=== PATIENT | female | born 1940 | race Two or more races ===

== ENCOUNTER 2017-02-16 11:17 | Inpatient (IN) | payer MEDICAID, MEDICARE ==
[~2017-02-16] VITALS: Ht 170.2 cm; Wt 85.0 kg
[2017-02-16 12:53] LABS: microscopic required? YES; urine erythrocyte 3+ (NEGATIVE)
[2017-02-16 12:54] LABS: BASOPHIL % 0.3 % (0-2); RED CELL DISTRIBUTION WIDTH 13.9 % (11.5-14.5)
[2017-02-16 13:02] LABS: PLATELET COUNT 49 x10^3mcL (130-400)
[2017-02-16 13:06] LABS: CHLORIDE SERUM 99 mmol/L (98-107); POTASSIUM SERUM 4.1 mmol/L (3.5-5.1); SODIUM SERUM 135 mmol/L (136-145)
[2017-02-16 13:08] LABS: CALCIUM 8.8 mg/dL (8.5-10.1); CREATININE SERUM 1.3 mg/dL (0.6-1.0); GLUCOSE SERUM 437 mg/dL (74-106); PHOSPHOROUS 4.1 mg/dL (2.5-4.9); TOTAL PROTEIN, SERUM 7.6 g/dL (6.4-8.2)
[2017-02-16 13:09] LABS: ALKALINE PHOSPHATASE 62 U/L (46-116); ALT/SGPT 79 U/L (14-59); AST/SGOT 66 U/L (15-37); MAGNESIUM 1.2 mg/dL (1.8-2.4)
[2017-02-16 13:10] LABS: CHOLESTEROL 93 mg/dL (<200); HDL CHOLESTEROL 35 mg/dL (40-60)
[2017-02-16 13:12] LABS: CARBON DIOXIDE 26.6 mmol/L (21-32)
[2017-02-16] MEDS ORDERED: METFORMIN HCL1000 MG PO (14:45)
[2017-02-16] MEDS ORDERED: ASPIR 8181 MG PO (14:45)
[2017-02-16] MEDS ORDERED: SIMVASTATIN20 M1 PO (14:45)
[2017-02-16] MEDS ORDERED: NOR5 PO (14:45)
[2017-02-16] MEDS ORDERED: JANUVIA100 M1 PO (14:45)
[2017-02-16] MEDS ORDERED: LOSARTAN POTASS50 M1 PO (14:46)
[2017-02-16] MEDS ORDERED: BONIVA150 M1 PO (14:46)
[2017-02-16] MEDS ORDERED: AMBIEN CR6.25 M1 PO (14:46)
[2017-02-16] MEDS ORDERED: CARVEDILOL3.125 M1 PO (14:46)
[2017-02-16] MEDS ORDERED: PRILOSEC OTC20 M1 PO (14:46)
[2017-02-16 16:44] LABS: AMPHETAMINE QUAL UR NONE DETECTED (NEG <=1000)
[2017-02-16 16:50] VITALS: BP 124/48
[2017-02-16 16:52] LABS: T3 TOTAL 1.17 ng/mL
[2017-02-16 17:19] LABS: CHOLESTEROL/HDL RATIO 2.7
[2017-02-16 17:25] LABS: FREE T4 1.13 ng/dL (0.76-1.46)
[2017-02-16 17:29] LABS: FREE THYROXINE INDEX 3.3 ug/dL (1.4-4.5); T4(THYROXINE) 15.1 ug/dL (4.7-13.3)
[2017-02-16 17:37] VITALS: BP 122/89; BP 124/48
[2017-02-16 22:20] VITALS: BP 123/63
[2017-02-17 05:54] VITALS: BP 103/51
[2017-02-17 06:55] LABS: RED CELL DISTRIBUTION WIDTH 13.8 % (11.5-14.5)
[2017-02-17 07:02] LABS: PLATELET COUNT 53 x10^3mcL (130-400)
[2017-02-17 07:12] LABS: CALCIUM 8.4 mg/dL (8.5-10.1); CARBON DIOXIDE 24.8 mmol/L (21-32); CHLORIDE SERUM 101 mmol/L (98-107); CREATININE SERUM 1.1 mg/dL (0.6-1.0); GLUCOSE SERUM 355 mg/dL (74-106); MAGNESIUM 2.6 mg/dL (1.8-2.4); PHOSPHOROUS 4.2 mg/dL (2.5-4.9); POTASSIUM SERUM 3.7 mmol/L (3.5-5.1); SODIUM SERUM 134 mmol/L (136-145)
[2017-02-17 07:47] LABS: BAND NEUTROPHIL 7 % (0-10); MONOCYTE 7 % (0-7); PLATELET MORPHOLOGY PLATELETS DECREASED; SEGMENTED NEUTROPHILS 72 % (37-75); rbc morphology (normal/abnorm) NORMAL (NORMAL)
[2017-02-17 08:56] VITALS: BP 115/49
[2017-02-17 13:56] VITALS: BP 101/46
[2017-02-17 17:46] VITALS: BP 129/54
[2017-02-17 21:40] VITALS: BP 116/53
[2017-02-18 06:03] VITALS: BP 149/67
[2017-02-18 06:18] LABS: CALCIUM 8.6 mg/dL (8.5-10.1); CARBON DIOXIDE 28.6 mmol/L (21-32); CHLORIDE SERUM 103 mmol/L (98-107); GLUCOSE SERUM 140 mg/dL (74-106); MAGNESIUM 2.3 mg/dL (1.8-2.4); PHOSPHOROUS 2.7 mg/dL (2.5-4.9); POTASSIUM SERUM 3.8 mmol/L (3.5-5.1); SODIUM SERUM 135 mmol/L (136-145)
[2017-02-18 06:50] LABS: BASOPHIL % 0.5 % (0-2); RED CELL DISTRIBUTION WIDTH 13.3 % (11.5-14.5)
[2017-02-18 06:54] LABS: PLATELET COUNT 51 x10^3mcL (130-400)
[2017-02-18 08:50] VITALS: BP 159/69
[2017-02-18 12:05] VITALS: BP 145/64
[2017-02-18 16:28] VITALS: BP 136/67
[2017-02-18 21:18] VITALS: BP 145/98
[2017-02-19 05:59] VITALS: BP 141/65
[2017-02-19 06:08] LABS: BASOPHIL % 0.2 % (0-2); RED CELL DISTRIBUTION WIDTH 13.4 % (11.5-14.5)
[2017-02-19 06:16] LABS: CALCIUM 8.7 mg/dL (8.5-10.1); CARBON DIOXIDE 23.8 mmol/L (21-32); CHLORIDE SERUM 103 mmol/L (98-107); CREATININE SERUM 0.8 mg/dL (0.6-1.0); GLUCOSE SERUM 137 mg/dL (74-106); MAGNESIUM 1.6 mg/dL (1.8-2.4); PHOSPHOROUS 3.4 mg/dL (2.5-4.9); POTASSIUM SERUM 3.6 mmol/L (3.5-5.1); SODIUM SERUM 136 mmol/L (136-145)
[2017-02-19 06:34] LABS: PLATELET COUNT 51 x10^3mcL (130-400)
[2017-02-19 08:45] VITALS: BP 146/59
[2017-02-19 11:50] VITALS: BP 122/62
[2017-02-19] MEDS ORDERED: GLU10 PO ×2 (15:24→16:35)
[2017-02-19] MEDS ORDERED: LEVEMIR100 U/M1 SQ (15:24)
[2017-02-19] MEDS ORDERED: MECLIZINE HCL12.5 MG PO (15:25)
[2017-02-19] MEDS ORDERED: LAC PO (15:28)
[2017-02-19] MEDS ORDERED: CIPRO500 MG PO (15:28)
[2017-02-19] MEDS ORDERED: BG FS (15:29)
[2017-02-19 15:52] VITALS: BP 122/62
[2017-02-19] MEDS ORDERED: INSULIN SYRING1 EA10 MC (16:55)
[2017-02-19] MEDS ORDERED: ACCU-CHEK1 EACH MC (16:55)
== END 2017-02-19 17:50 | disposition home health service (06) | DRG 46 ==
LOC: ED 11:17 → DU 15:46 → MU 02-19 17:38
PROVIDERS: Emergency Medicine; Family Medicine; ADMIT Family Medicine
DX: I65.21 Occlusion and stenosis of right carotid artery (principal); N17.0 Acute kidney failure with tubular necrosis; G93.41 Metabolic encephalopathy; E44.0 Moderate protein-calorie malnutrition; E83.42 Hypomagnesemia; E11.65 Type 2 diabetes mellitus with hyperglycemia; E11.51 Type 2 diabetes mellitus with diabetic peripheral angiopathy without gangrene; I08.1 Rheumatic disorders of both mitral and tricuspid valves; M51.37 Other intervertebral disc degeneration, lumbosacral region; M48.06 Spinal stenosis, lumbar region; N39.0 Urinary tract infection, site not specified; R26.2 Difficulty in walking, not elsewhere classified; B18.2 Chronic viral hepatitis C; I10 Essential (primary) hypertension; R55 Syncope and collapse; G30.9 Alzheimer's disease, unspecified; F02.80 Dementia in other diseases classified elsewhere, unspecified severity, without behavioral disturbance, psychotic disturbance, mood disturbance, and anxiety; E83.39 Other disorders of phosphorus metabolism; N81.4 Uterovaginal prolapse, unspecified; R32 Unspecified urinary incontinence; Z68.29 Body mass index [BMI] 29.0-29.9, adult; Z95.1 Presence of aortocoronary bypass graft; Z79.84 Long term (current) use of oral hypoglycemic drugs
CPT/HCPCS: 82962; 83880; 84439; 97110-GP; 97116-GP; 97530-GP; J0696; J1815; J2405; J3475; J7030; Q0092; Q9967